=== PATIENT | male | born 1960 | race Caucasian/White ===

== ENCOUNTER → 2020-08-11 08:59 | Outpatient (BNVA) | payer OTHER, SELFPAY | PROVIDERS: Family Provider Family Medicine; PCP Family Medicine; Visit Provider Internal Medicine Cardiovascular Disease | DX: E78.5 Hyperlipidemia, unspecified (principal); I25.10 Atherosclerotic heart disease of native coronary artery without angina pectoris | CPT/HCPCS: 80061; 80076 ==

== ENCOUNTER → 2020-10-14 08:28 | Outpatient (BNVA) | payer OTHER, SELFPAY | PROVIDERS: Family Provider Family Medicine; PCP Family Medicine; Visit Provider Internal Medicine Cardiovascular Disease | DX: E78.5 Hyperlipidemia, unspecified (principal); I10 Essential (primary) hypertension | CPT/HCPCS: 80061; 80076 ==

== ENCOUNTER 2022-08-29 08:07 | Outpatient (CLI) | payer OTHER, SELFPAY ==
[2022-08-29 08:35] VITALS: BMI 42.0
--- NOTE | 2022-08-29 08:38 | ECG_ITS ---
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 Interpretive Statements NAME OF STUDY: EXERCISE SESTAMIBI STRESS TEST INDICATION: [Chest Pain/CAD, ] Electronically Signed On 09-03-2022 15:52:57 [employer] by Jane Chen M.D. [id number]
--- NOTE | 2022-08-29 08:39 | NMCV_ITS ---
NM vivian perf SPECT r/s* [id number] Baron Pandey Age: 62 Gender: M : 1960 Exam Date: 08/29/2022 09:27 Ordering Phys: Antonio Jones MD ([email or web address]) Technologist: ELIZABET Guerrero Exam Location: [facility] Indications: SHORTNESS OF BREATH STRESS TEST Please see separate stress test report in [facility] for full findings IMAGE PROTOCOL Rest/Stress 1 Exercise Day Radiopharmaceutical Dose (mCi) Administration Site Administered by Rest: Tc-99m 10.3 IV ELIZABET Galvin Sestamibi Stress:Tc-99m 32.9 IV ELIZABET Galvin Sestamibi Rest: 29-Aug-2022 60 Discovery 630 Stress: 29-Aug-2022 15 Discovery 630 Radiopharmaceutical was injected at 93 % maximum heart rate. Images obtained in supine and prone position. SPECT RESULTS Technical Quality: Excellent Raw Data Analysis: Normal Image Corrections: Summed Stress Score: 3 Summed Rest Score: 3 Summed Difference Score: 1 PERFUSION FINDINGS Myocardial perfusion imaging revealing small to moderate area of mildly decreased tracer uptake in the basal and mid inferior and apical lateral regions. Some reversibility was noted in the basal inferior region. No significant reversibility was noted in the other segments. FUNCTIONAL RESULTS (calculated via Gated SPECT) Stress Image LV EF (%): 66 Stress EDV (mL):125 TID: 0.95 Stress ESV (mL):42 FUNCTIONAL FINDINGS: LV wall motion analysis revealing no gross wall motion abnormalities. IMPRESSIONS 1. Myocardial perfusion imaging revealing small to moderate area of decreased tracer uptake in the basal and mid inferior and apical lateral region with some reversibility, suggesting myocardial scarring with small area of ischemia in the distribution of the right coronary artery. 2. Normal LV ejection fraction of 66%. 3. LV wall motion analysis revealing no gross wall motion abnormalities. 4. LV volume, upper limit of normal. No similar previous studies are available for comparison Dr Jane Chen MD [facility] (Electronically Signed) Final Date: 30 August 2022 07:47 S
[2022-08-29 11:14] VITALS: BP 158/100; PULSE 87
== END 2022-08-29 08:08 | disposition home or self-care (01) ==
LOC: CDL 08:10
PROVIDERS: PCP Family Medicine; Visit Provider Internal Medicine Cardiovascular Disease
DX: R07.9 Chest pain, unspecified (principal)
CPT/HCPCS: 36415; 78452; 93017; A9500

== ENCOUNTER 2022-09-22 05:51 | Outpatient (CLI) | payer OTHER, SELFPAY ==
[2022-09-22] VITALS (45 sets, daily range): BP systolic 111–149; BP diastolic 65–96; PULSE 54–78; RESP 13–23; TEMP 36.9–37.2; O2SAT 92–97; BMI 42.5; BMI 43.5
--- NOTE | 2022-09-22 06:00 | XACV_ITS ---
Ht: 183 cm Wt: 142 kg BSA: 2.75 m2 Gender: Male : 1960 Any Known Allergies: Other Exam Priority: Routine Indication(s): - Abnormal adenosine perfusion study - Dyspnea with exertion Procedure(s): Procedure Description: Diagnostic procedure Procedure Description: PCI procedure Procedure Description: Left Heart Catheterization Procedure Description: Drug Eluting Coronary Stent Procedure Description: PTCA Procedure Description: Cutting Balloon Procedure Description: Miscellaneous Procedure Description: ACT Procedure Description: Coronary Angiography Diagnostic Cath Status: Elective Diagnostic Findings * INDICATION: Chest pain/ abnormal stress test. * Left Anterior Descending has mild luminal irregularities. * Right Coronary Artery is a small sized vessel and has no signficant disease. * Left Main has no disease. * Mid Circumflex: moderate 50% stenosis, ZOË: 3 flow. * First Obtuse Marginal Branch Segment: obstructive 70% stenosis, ZOË: 3 flow. * Coronary angiography shows left dominance. PCI Status: Elective PCI Indication: Other Interventional Findings * Procedure detail: We engaged left main artery with XB 3.5 guide catheter. IV heparin was administered to maintain anticoagulation. After normalization, IFR wire was advanced into distal OM1 branch. An IFR value of 0.89 was obtained that was ischemic. Given typically chest pain symptoms and abnormal IFR, we proceeded with performing PCI of the vessel. 0.014 run-through guidewire was used. Stenosis was predilated with 2.5 x 12 mm semicompliant balloon. It was calcified. We then used a 3.0 x 10 mm score Flex scoring balloon to predilated. Using a guide liner support, we placed 3.0 x 22 mm resolute [place] drug-eluting stent. At this time patient developed chest pain and had slow/no flow in the vessel. Stent edge dissection was noted. In order to cover that we placed a 2.75 x 15 mm resolute [place] drug-eluting stent. Dissection extended further and it was then covered with 2.5 mm x 12 mm resolute [place] drug-eluting stent. At this time final angiogram was performed that showed excellent stent expansion, no residual stenosis and ZOË 3 flow. Guide wire and guide catheter was removed. 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 . * First Obtuse Marginal Branch Segment: 70% stenosis treated with a AB TREK 2.50X12 RX BALLOON, MDCourt CARABALLO EUPHORA RX 3.68T70RD BALLOON, Scoreflex 3.0 mm x 10 mm, MDT R DANIA 3.0X22 EHSAN, MDT R DANIA 2.75X15 EHSAN, and MDT R DANIA 2.5X12 EHSAN. 0% residual stenosis, ZOË: 3 flow. Conclusions 1. Severe OM1 stenosis confirmed with 2. IFR value of 0.89. S/p successful revascularization with EHSAN x3.. 3. First Obtuse Marginal Branch Segment was treated with a Balloon, Balloon, Balloon, Drug Eluting Stent, Drug Eluting Stent, and Drug Eluting Stent. Recommendations * Continue dual antiplatelet therapy with aspirin. At least 1 year. * High intensity statin therapy. * Patient will need follow-up in 4 weeks. Interventional RX Recommendation: PCI w/o planned CABG Diagnostic RX Recommendation: PCI w/o planned CABG Anticoagulation: Heparin Pressures Phase:Rest AO : 113 / 91 ( 103 ) @ 8:54:00 AM 116 / 96 ( 107 ) @ 8:54:00 AM 127 / 108 ( 118 ) @ 8:58:00 AM 117 / 68 ( 89 ) @ 9:01:00 AM 111 / 67 ( 85 ) @ 9:01:00 AM 90 / 68 ( 79 ) @ 9:12:00 AM 93 / 74 ( 84 ) @ 9:19:00 AM 101 / 79 ( 90 ) @ 9:19:00 AM 89 / 69 ( 79 ) @ 9:26:00 AM 47 / 35 ( 41 ) @ 9:30:00 AM 119 / 81 ( 99 ) @ 9:32:00 AM 102 / 76 ( 89 ) @ 9:36:00 AM LV : 132 / -15 / 5 @ 9:00:00 AM 133 / -12 / 7 @ 9:01:00 AM Valves Phase:DefaultPhase AV : 16.0 @ 9:11:15 AM AV Mean Gradient: 19.0 @ 9:11:15 AM Clinical Evaluation EBL: 5mL-10mL Procedural Details Procedure Consent Obtained. Admit Source: Out Patient. Pre-Procedure Time Out. Identified patient by full name and date of as verbalized by the patient/guarantor. Does the consent match the physician's order: Yes. Accurate & Complete Informed Consent: Yes. Inpatient/Outpatient History & Physical on Chart: Yes. If H&P is completed, is and addenduem needed: No; If yes, is the addendum complete: N/A. Visualize and Verify Site with Patient/Guarantor: N/A. Relevant Radiology Images available: N/A. The risks, benefits, and alternatives of sedation and/or procedure were discussed by physician. The patient agrees to continue. Procedure started. [facility] Clinical Fraility Score: 3: Managing Well. 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 Chest Pain Symptom Assessment: Atypical Angina. Cardiovascular Instability: No- stable. Correct patient, site and procedure confirmed by cath team. Current diagnosis: Chest Pain; Abnormal stress test; Dyspnea on exertion. PERRLA. Strong, equal hand marketing content specialist bilaterally. Lungs clear x 5 lobes. IV Site on Arrival: 20 gauge in the right anticubital. IV Fluids: 0.9% NaCl at KVO. 0 mL infused prior to mineral ore processing labourer. Pre Procedural Pulses: bilateral radial was 1+. Pre Procedural Pulses: bilateral posterior tibial was 2+. Pre Procedural Pulses: bilateral dorsalis pedis was 2+. Oxygen started at 3liters/min via nasal canula. bilateral groins was prepped with chloroprep then draped in the usual sterile fashion. Baseline sample Acquired. HR: 71 BPM. Physician notified. Family updated by MD prior to arrival. Physician arrived. Physician scrubbed in. Immediate Pre-Procedure Time Out. Correct Patient: Yes; Correct Procedure: Yes; Correct Site: Yes; Correct Patient Position: Yes; Correct Supplies: Yes; Dried Flammable Prep: Yes; Blood Products Available: N/A;. Lidocaine 1% infiltrated to the right groin. Arterial access obtained with micropuncture set. A 5 moroccan JL4 catheter in over wire. Unable to cannulate. Catheter removed over the exchange wire. A 5 moroccan JL5 catheter in over wire. Catheter removed over the exchange wire. A 5 moroccan JR4 catheter in over wire. Multiple views taken of right coronary artery. JR4 catheter dropped into lv over the wire. wire removed. EDP Sample taken: LV 132/-16,5; HR: 73 BPM; SpO2: 98%. Pullback taken: LV 133/-13,7; AO 117/68(89); Mean: 19mmHg, Peak to Peak: 16mmHg, SEP: 12sec/min; HR: 75 BPM; SpO2: 97%. Catheter removed over the wire. Inventory is CRD 6 FR XB 3.5 GUIDE. Inventory: six sigma project manager, endoflator. 6 moroccan XB 3.5 guide catheter was inserted over the wire. Guide seated in the LCS. IFR guidewire was advanced through the guide catheter to lesion in the OM. ifr wire normalized proximal to lesion then advanced past. IFR SPOT obtained- 0.89. IFR pullback obtained 0.92. Inflation number : 1 A AB TREK 2.50X12 RX BALLOON was prepped and advanced across the 1st Ob Alexandra , then inflated to 12 ENRIQUE for 0:23 seconds. Results checked. Inflation number: 2 The AB TREK 2.50X12 RX BALLOON was reinflated across the 1st Ob Alexandra, to 12 ENRIQUE for 0:21 seconds. Inflation number: 3 The AB TREK 2.50X12 RX BALLOON was reinflated across the 1st Ob Alexandra, to 12 ENRIQUE for 0:16 seconds. Inflation number: 4 The AB TREK 2.50X12 RX BALLOON was reinflated across the 1st Ob Alexandra, to 12 ENRIQUE for 0:14 seconds. Results checked. Balloon out over the wire. Scoreflex in over the wire. Scoreflex removed. no cross. Inflation number : 5 A MDT NC EUPHORA RX 3.87X95SH BALLOON was prepped and advanced across the 1st Ob Alexandra , then inflated to 12 ENRIQUE for 0:12 seconds. Inflation number: 6 The MDT NC EUPHORA RX 3.43Z95AE BALLOON was reinflated across the 1st Ob Alexandra, to 12 ENRIQUE for 0:08 seconds. Inflation number: 7 The MDT NC EUPHORA RX 3.68W65HD BALLOON was reinflated across the 1st Ob Alexandra, to 12 ENRIQUE for 0:14 seconds. Balloon out over the wire. Inflation number : 8 A Scoreflex 3.0 mm x 10 mm was prepped and advanced across the 1st Ob Alexandra , then inflated to 10 ENRIQUE for 0:22 seconds. Inflation number: 9 The Scoreflex 3.0 mm x 10 mm was reinflated across the 1st Ob Alexandra, to 10 ENRIQUE for 0:15 seconds. Balloon out over the wire. Stent inserted and then removed. No cross. Guidliner inserted. Inflation Number : 10 A MDT R DANIA 3.0X22 EHSAN -Lot Number# [id number] was prepped and advanced across the 1st Ob [place]andra. The stent was deployed at 12 ENRIQUE for 0:18 seconds. EXP: 01/11/25. Stent balloon out over the wire. Guideliner removed. Runthrough guidewire was advanced through the guide catheter to lesion in the OM. Guidewire advanced across lesion. IFR wire removed. Results checked. Stent inserted. Unable to cross. Removed intact. Guideliner inserted. Inflation Number : 11 A MDT R DANIA 2.75X15 EHSAN -Lot [id number] EXP 09-28-24 was prepped and advanced across the 1st Ob Alexandra. The stent was deployed at 12 ENRIQUE for 0:15 seconds. Results checked. Guideliner out. AP pads applied. Stent balloon out over wire. Stent inserted. Unable to cross. Removed intact. Stent inserted. Unable to cross. Removed intact. Guideliner inserted. Inflation Number : 12 A MDT R DANIA 2.5X12 EHSAN -Lot Number# [id number] was prepped and advanced across the 1st Ob Alexandra. The stent was deployed at 12 ENRIQUE for 0:16 seconds. EXP 06/01/2024. Results checked. Stent balloon out over the wire. Guideliner out. Results checked. Wire out. Results checked. Blood drawn for PTT. Sent to main lab. Guide catheter out over the wire. Physician review of films. Physician scrubbed out. A Suture was successful obtaining hemostatsis at the Right Femoral artery insertion site. Vital chart was stopped. Sheath(s) sutured into position with 2-0 silk and sterile 4x4's and Op-site applied over the site. No oozing or signs and symptoms of hematoma noted. Arterial sheath flushed and connected to tranducer and pressure bag with heparinized saline. Post Procedure: Pulses reassessed and unchanged. PERRLA. Strong, equal hand marketing content specialist bilaterally. No VTE prophylaxis required. Medication waste: Nitro- 49.8 mg Heparin- 1000 units. Fentanyl- 25 mcg. Total IV fluids: 250 mL. Fluoro: 21:00. Contrast type used: Omnipaque 300 mgI/mL, 500 mL bottle. [id number]. Post-op diagnosis: Severe OM1 stenosis; Status post revascularization with 3 stents. Complications: None. Estimated blood loss: 5mL-10mL. Responsiveness - Normal response to verbal stimuli; alert and oriented, PERRLA. Airway - Unaffected, no intervention required; spontaneous ventilation. Circulation: W/N/L, pulses unchanged. Nausea/Vomiting: No. Procedure completed. Patient transferred by bed to CPRU. Current Diagnosis : Chest Pain. Access Site Site: Right Femoral artery Sheath Size: 6 Fr Hemostasis Method: Suture Hemostasis Success: Successful Procedure Medications Start: 7:45 AM Stop: 7:45 AM Medication: Versed Amount: 1 mg Route: I.V. Start: 7:45 AM Stop: 7:45 AM Medication: Fentanyl Amount: 50 mcg Route: I.V. Start: 7:48 AM Stop: 7:48 AM Medication: Versed Amount: 1 mg Route: I.V. Start: 8:01 AM Stop: 8:01 AM Medication: Heparin Amount: 10143 units Route: I.V. Start: 8:02 AM Stop: 8:02 AM Medication: Versed 1 mg and Fentanyl 25 mcg Amount: 1 Route: I.V. Start: 8:11 AM Stop: 8:11 AM Medication: Heparin Amount: 3000 units Route: I.V. Start: 8:18 AM Stop: 8:18 AM Medication: Heparin Amount: 1000 units Route: I.V. Start: 8:27 AM Stop: 8:27 AM Medication: Heparin Amount: 1000 units Route: I.V. Start: 8:31 AM Stop: 8:31 AM Medication: 0.9% Saline Amount: 250 ml Route: I.V. bolus Start: 8:33 AM Stop: 8:33 AM Medication: Versed Amount: 1 mg Route: I.V. Start: 8:15 AM Stop: 8:15 AM Medication: Versed Amount: 1 mg Route: I.V. Start: 8:42 AM Stop: 8:42 AM Medication: Heparin Amount: 1000 units Route: I.V. Start: 8:46 AM Stop: 8:46 AM Medication: Versed Amount: 1 mg Route: I.V. Start: 8:50 AM Stop: 8:50 AM Medication: Nitrogylcerin Amount: 100 mcg Route: I.C. I, the attending physician, have reviewed and verified all procedure medications. Yes, all medications given per verbal order History/Risk Factors Hypertension: Yes Dyslipidemia: Yes Peripheral Arterial Disease (PAD): No Myocardial Infarction (DE): Yes Obesity: Yes Renal Disease: No Tobacco Use: Former Prior Interventions PCI: Yes CABG: No Valve Surgery: No Report Signatures Finalized by Ángel Mcintyre MD on 10/02/2022 07:15 AM
[2022-09-22] MEDS: diphenhydrAMINE 50 mg Capsule PO (06:30)
[2022-09-22 06:36] LABS: Basophils # 0.1 10^3/uL (0.0-0.1); Basophils % 0.5 %; Eosinophils # 0.3 10^3/uL (0.0-0.8); Eosinophils % 2.8 %; Hematocrit 49.3 % (42.0-52.0); Hemoglobin 17.1 g/dL (11.7-16.6); Lymphocytes # 2.4 10^3/uL (0.8-4.8); Lymphocytes % 25.3 %; Mean Corpuscular HGB Conc 34.7 g/dL (30.0-36.0); Mean Corpuscular Volume 77.9 fl (80-94); Mean Platelet Volume 9.8 fL (7.4-10.4); Monocytes # 0.6 10^3/uL (0.2-0.9); Monocytes % 5.9 %; Neutrophils # 6.06 10^3/uL (1.8-7.7); Neutrophils % 65.2 %; Nucleated Red Blood Cells % 0 %; Platelet Count 258 10^3/cmm (130-400); Red Blood Count 6.33 10^6/uL (4.1-5.3); Red Cell Distribution Width 12.8 % (12.1-15.1); White Blood Count 9.3 10^3/uL (4.0-10.0)
[2022-09-22 06:43] LABS: Blood Urea Nitrogen 15 mg/dL (8-23); Calcium 9.4 mg/dL (8.5-10.5); Carbon Dioxide 26 mmol/L (22-29); Chloride 102 mmol/L (98-107); Glomerular Filtration Rate 85.8 mL/min (90-130); Glucose 147 mg/dL (65-115); Osmolality Calculated 292 mOsm/kg (285-295); Sodium 139 mmol/L (136-145)
--- NOTE | 2022-09-22 07:44 | W.PM.OPSUD ---
Surgery/Procedure H&P Update DATE OF PROCEDURE: September 22, 2022 DATE H&P PERFORMED: 09/08/22 H&P UPDATE INFORMATION: I have reviewed H&P completed within last 30 days, I have examined patient prior to procedure and No changes to prior documentation PREOP DIAGNOSIS: Chest pain/ abnormal stress test PRIMARY INDICATION FOR PROCEDURE: Chest pain/ abnormal stress test PLANNED PROCEDURE: Operation Date: 09/22/22 07:00 Proposed Procedures p [facility] w/-w/o 81292 ,R07.9(Left) - Ángel Mcintyre M.D Possible percutaneous coronary intervention PATIENT REASSESSED PRIOR TO SEDATION, WITH NO CHANGE NOTED: Yes PHYSICAL EXAM: alert, oriented x 3, clear to auscultation bilaterally and regular rate & rhythm AIRWAY EVAL/ANESTHESIA PLAN: normal airway, ASA III, Local Anesthesia, Risks, benefits & alternatives of sedation and/or procedure discussed and Patient agrees to continue as planned ADDITIONAL INFORMATION: Moderate sedation
--- NOTE | 2022-09-22 09:18 | PC.NURSE ---
Received pt from lab intern post stent placement. Pt complains of no pain at this time. Pt wakes to verbal command. Sheath attached to pressure bag in right groin. No bruising or hematoma noted. Pt attached to vitals and will be monitored per protocol. PTT drawn and send to lab.
[2022-09-22 10:03] LABS: Partial Thromboplastin Time > 250.0 SECONDS (23.9-36.7)
--- NOTE | 2022-09-22 10:03 | PC.NURSE ---
critical PTT called from lab. greater 250. dr wallace orders repeat ptt in 2 hours.
[2022-09-22 12:12] LABS: Partial Thromboplastin Time 143.4 SECONDS (23.9-36.7)
--- NOTE | 2022-09-22 12:56 | PC.NURSE ---
received from cardiac chemical laboratory technician via bed,into room 111-1, at 1245.report received.pt is alert and oriented x 4.sr on monitor.denies pain at present.right femoral arterial sheath is intact to pressurized system.right groin dsg is dry and intact.no hematoma noted.right leg is warm to touch and with brisk capillary refill.palpable dp pulse noted.pt and family instructed in activity restrcitions s/p femoral artery procedure...and instructed to notify staff for any bleeding,pain,numbness,sob,or for any concerns at all.they verb understanding of instructions.
[2022-09-22 13:59] LABS: Partial Thromboplastin Time 39.5 SECONDS (23.9-36.7)
--- NOTE | 2022-09-22 15:14 | PC.NURSE ---
sheath pull: right femoral arterial sheath pulled at 1430.manual pressure held x 20 min.vss through-out procedure.no hematoma formation noted.right leg remained warm to touch and with brisk capillary refill.palpable dp pulse noted.pt and cg instructed in activity restrictions s/p sheath pull...and instructed to notify staff for any bleeding,pain,sob,numbness...or for any concerns at all.pt verb understanding of instructions
[2022-09-23 01:05] VITALS: BP 116/69; PULSE 66; RESP 19; TEMP 36.6; O2SAT 95
[2022-09-23 03:56] VITALS: PULSE 74; O2SAT 95
[2022-09-23 04:00] VITALS: BP 128/78; PULSE 74; RESP 21; TEMP 36.5; O2SAT 98
[2022-09-23 05:36] VITALS: PULSE 60
[2022-09-23 05:36] LABS: Basophils # 0.1 10^3/uL (0.0-0.1); Basophils % 0.7 %; Eosinophils # 0.3 10^3/uL (0.0-0.8); Eosinophils % 3.3 %; Hematocrit 45.5 % (42.0-52.0); Hemoglobin 15.7 g/dL (11.7-16.6); Lymphocytes # 2.4 10^3/uL (0.8-4.8); Lymphocytes % 24.7 %; Mean Corpuscular HGB Conc 34.5 g/dL (30.0-36.0); Mean Corpuscular Hemoglobin 27.4 pg (28.0-34.0); Mean Corpuscular Volume 79.4 fl (80-94); Mean Platelet Volume 10.3 fL (7.4-10.4); Monocytes # 0.7 10^3/uL (0.2-0.9); Monocytes % 6.7 %; Neutrophils # 6.22 10^3/uL (1.8-7.7); Neutrophils % 64.2 %; Nucleated Red Blood Cells % 0 %; Platelet Count 222 10^3/cmm (130-400); Red Blood Count 5.73 10^6/uL (4.1-5.3); Red Cell Distribution Width 13.1 % (12.1-15.1); White Blood Count 9.7 10^3/uL (4.0-10.0)
[2022-09-23 05:44] LABS: Anion Gap 14.9 (5-19); Blood Urea Nitrogen 13 mg/dL (8-23); Carbon Dioxide 24 mmol/L (22-29); Chloride 102 mmol/L (98-107); Glomerular Filtration Rate 85.8 mL/min (90-130); Glucose 145 mg/dL (65-115); Osmolality Calculated 287 mOsm/kg (285-295); Potassium 3.9 mmol/L (3.5-5.1); Sodium 137 mmol/L (136-145)
[2022-09-23 08:34] VITALS: BP 123/70
[2022-09-23] MEDS: losartan 50 mg Tablet PO (08:34)
[2022-09-23] MEDS: aspirin 81 mg EC Tablet PO (08:34)
[2022-09-23] MEDS: clopidogrel 75 mg Tablet PO (08:34)
[2022-09-23] MEDS: chlorthalidone 25 mg Tablet PO (08:34)
[2022-09-23 10:03] VITALS: BP 131/78; PULSE 74; RESP 18; O2SAT 97
--- NOTE | 2022-10-02 07:01 | PM.DCS ---
Discharge Providers Date of Admission: 09/22/2022 Date of Discharge: 09/23/2022 Attending Provider at Admission: Ángel Mcintyre MD Attending Provider at Discharge: Ángel Mcintyre MD Primary Care Provider: Mahamed Monsivais Reason for Visit Reason for Visit: Left heart cath with possible PCI Brief History: 62-year-old man with past medical history of CAD had been having worsening chest pain symptoms that feels like pressure. He recently had a stress test that was abnormal. Plan for coronary angiogram with possible PCI. Hospital Course Hospital Course Coronary angiogram revealed moderate to severe, eccentric OM1 stenosis. iFR confirmed ischemia. We then performed PCI with 1 stent. He had distal edge dissection of the vessel from the stent. 2 additional stents were placed to cover that. He had excellent flow and stent expansion at the end. He was observed overnight in the hospital and stayed stable. He is discharged in a stable condition. Physical Exam Narrative: GENERAL: Patient is alert, awake and oriented x3. [] NECK: No jugular vein distension. [] HEENT: No cyanosis. No icterus. No pallor. [] HEART: Regular S1 and S2. No murmur, rub or gallop. [] LUNGS: Clear to auscultate bilaterally. [] CENTRAL NERVOUS SYSTEM: Grossly nonfocal. [] EXTREMITIES: Lower extremities with 1+ edema bilaterally. Pulses palpable in the lower extremities, both dorsalis pedis and posterior tibial. [] Discharge Data Studies Completed and Pending Pending at discharge Category Date Time Status HEAD OF ETHICS AND COMPLIANCE request for service Routine Exams 09/22/22 06:00 Taken Laboratory Results WBC 9.7 10^3/uL (4.0-10.0) 09/23/22 04:27 RBC 5.73 10^6/uL (4.1-5.3) H 09/23/22 04:27 Hgb 15.7 g/dL (11.7-16.6) 09/23/22 04:27 Hct 45.5 % (42.0-52.0) 09/23/22 04:27 MCV 79.4 fl (80-94) L 09/23/22 04:27 MCH 27.4 pg (28.0-34.0) L 09/23/22 04:27 MCHC 34.5 g/dL (30.0-36.0) 09/23/22 04:27 RDW 13.1 % (12.1-15.1) 09/23/22 04:27 Plt Count 222 10^3/cmm (130-400) 09/23/22 04:27 MPV 10.3 fL (7.4-10.4) 09/23/22 04:27 Neut % (Auto) 64.2 % 09/23/22 04:27 Lymph % (Auto) 24.7 % 09/23/22 04:27 [place] % (Auto) 6.7 % 09/23/22 04:27 Eos % (Auto) 3.3 % 09/23/22 04:27 Baso % (Auto) 0.7 % 09/23/22 04:27 Neut # (Auto) 6.22 10^3/uL (1.8-7.7) 09/23/22 04:27 Lymph # (Auto) 2.4 10^3/uL (0.8-4.8) 09/23/22 04:27 [place] # (Auto) 0.7 10^3/uL (0.2-0.9) 09/23/22 04:27 Eos # (Auto) 0.3 10^3/uL (0.0-0.8) 09/23/22 04:27 Baso # (Auto) 0.1 10^3/uL (0.0-0.1) 09/23/22 04:27 Nucleated RBC % (auto) 0 % 09/23/22 04:27 Nucleated RBCs # 0.0 /100WBC 09/23/22 04:27 APTT 39.5 SECONDS (23.9-36.7) H D 09/22/22 13:33 Sodium 137 mmol/L (136-145) 09/23/22 04:27 Potassium 3.9 mmol/L (3.5-5.1) 09/23/22 04:27 Chloride 102 mmol/L (98-107) 09/23/22 04:27 Carbon Dioxide 24 mmol/L (22-29) 09/23/22 04:27 Anion Gap 14.9 (5-19) 09/23/22 04:27 BUN 13 mg/dL (8-23) 09/23/22 04:27 Creatinine 0.9 mg/dL (0.7-1.2) 09/23/22 04:27 GFR Calculation 85.8 mL/min (90-130) L 09/23/22 04:27 Glucose 145 mg/dL (65-115) H 09/23/22 04:27 Calculated Osmolality 287 mOsm/kg (285-295) 09/23/22 04:27 Calcium 9.0 mg/dL (8.5-10.5) 09/23/22 04:27 Vitals Last Vital Signs Temp 97.7 F 09/23/22 04:00 Pulse 74 09/23/22 10:03 Resp 18 09/23/22 10:03 BP 131/78 09/23/22 10:03 Pulse Ox 97 09/23/22 10:03 O2 Del Method 09/23/22 10:03 Discharge Plan Discharge Patient Disposition: Home Prescriptions: Continued indomethacin 25 mg capsule 25 mg PO DAILY PRN (Reason: pain) chlorthalidone 25 mg tablet 25 mg PO DAILY Qty: 30 4RF valsartan 160 mg tablet 160 mg PO DAILY Qty: 90 3RF clonidine HCl 0.1 mg tablet 0.1 mg PO DAILY PRN (Reason: hypertensive emergency) Qty: 30 1RF aspirin [Adult Low Dose Aspirin] 81 mg tablet,delayed release (DR/EC) 81 mg PO QDAY Qty: 90 3RF nitroglycerin [Nitrostat] 0.4 mg tablet, sublingual 0.4 mg SUBLINGUAL Q5M PRN (Reason: chest pain) Qty: 25 3RF clopidogrel 75 mg tablet 75 mg PO QDAY Qty: 90 3RF Discharge Orders: Discharge Order (Routine); Ordered 09/23/22 Ordered By: Ángel Mcintyre Referrals: Mahamed Monsivais [Primary Care Provider] - 09/30/22 10:30 am Nori Ford FNP [Nurse Practitioner] - 09/28/22 11:15 am Diet: Cardiac Activity: Increase activity as tolerated Patient Instructions: Coronary Angioplasty (DC) Discharge Date/Time: 09/23/22 10:40 Discharge Attestations Time Spent in Discharge Care*: less than 30 min Quality Metrics Clinical Quality Measures [ No reported AMI, CVA or VTE this stay] Coding Level of Care Code Acute Code for Chg Lynn
== END 2022-09-23 10:40 | disposition home or self-care (01) ==
LOC: CCL 05:57 → CSU 12:34 → CCL 12:38 → CSU 20:16
PROVIDERS: Internal Medicine; PCP Family Medicine; Visit Provider Internal Medicine Cardiovascular Disease
DX: I25.10 Atherosclerotic heart disease of native coronary artery without angina pectoris (principal); I25.82 Chronic total occlusion of coronary artery; I10 Essential (primary) hypertension; E78.5 Hyperlipidemia, unspecified; E66.9 Obesity, unspecified; Z68.41 Body mass index [BMI] 40.0-44.9, adult; I25.2 Old myocardial infarction; Z87.891 Personal history of nicotine dependence
CPT/HCPCS: 36415; 80048; 85025; 85730; 93458; 93571; 96361; 96365; 99152; 99153; C1725; C1769; C1874; C1887; C1894; C9600; J1644; J2250; J3010; J3490; J7030; Q0163; Q9967

== ENCOUNTER → 2024-10-15 10:29 | Outpatient (BNVA) | payer OTHER, SELFPAY | PROVIDERS: PCP Family Medicine; Visit Provider Internal Medicine Cardiovascular Disease | DX: R07.9 Chest pain, unspecified (principal) | CPT/HCPCS: 93005 ==

== ENCOUNTER 2024-10-22 15:27 | Outpatient (CLI) | payer OTHER, SELFPAY ==
[2024-10-22 17:28] LABS: NT Pro B Type Natriuretic Pept < 36 pg/mL (0-125)
== END 2024-10-22 15:28 | disposition home or self-care (01) ==
LOC: LAB 15:28
PROVIDERS: PCP Family Medicine; Visit Provider Nurse Practitioner Family
DX: R06.02 Shortness of breath (principal)
CPT/HCPCS: 36415; 83880

== ENCOUNTER 2024-11-01 06:46 | Outpatient (CLI) | payer OTHER, SELFPAY ==
--- NOTE | 2024-11-01 14:15 | USCV_ITS ---
Baron Pandey Age: 64 Gender: M : 1960 Exam Date: 11/01/2024 06:54 Ordering Phys: Yina Sprague NP Technologist: ALENA [place]am [place] [facility] [place]: Preop clearance BP: 140 / 93 HR: 74 Rhythm: Sinus Technical Quality: Adequate MEASUREMENTS (Male / Female) Normal Values 2D ECHO LV Diastolic Diameter PLAX 4.5 cm 4.2 - 5.9 / 3.9 - 5.3 cm IVS Diastolic Thickness 1.1 cm 0.6 - 1.0 / 0.6 - 0.9 cm IVS Systolic Thickness 1.5 cm LVPW Diastolic Thickness 0.9 cm 0.6 - 1.0 / 0.6 - 0.9 cm LVPW Systolic Thickness 1.7 cm LVOT Diameter 1.9 cm LV Ejection Fraction 2D Teich 60.8 % LV Ejection Fraction MOD 4C 63.2 % LV Ejection Fraction MOD 2C 42.6 % LV Ejection Fraction 2C AL 77.0 % LA Diameter 3.3 cm RA Systolic Volume 4C AL 17.2 ml RA Systolic Volume 4C MOD 16.9 ml Aorta at Sinotubular Diameter 2.9 cm M-MODE LA Ao Ratio MM 1.6 AV Cusp Separation MM 1.2 cm DOPPLER AV Peak Velocity 188.7 cm/s LVOT Peak Velocity 108.0 cm/s AV Area Cont Eq vti 2.1 cm squared AV Area Cont Eq pk 1.7 cm squared MV Peak Velocity 92.0 cm/s MV Area PHT 3.4 cm squared Mitral E to A Ratio 0.8 TR Peak Velocity 117.0 cm/s TR Peak Gradient 5.5 mmHg TV Peak E Velocity 63.0 cm/s PV Peak Velocity 91.0 cm/s FINDINGS Left Ventricle Left ventricle is normal in size. LV systolic function is normal with EF of 55-60%. No regional wall motion abnormalities. Grade 1 diastolic dysfunction Right Ventricle Normal in size and function Right Atrium Normal in size Left Atrium Normal in size Mitral Valve Grossly normal mitral valve. Mild mitral regurgitation. Aortic Valve Grossly normal. No significant stenosis or regurgitation. Tricuspid Valve Insufficient TR jet to calculate RVSP Pulmonic Valve Not well visualized Pericardium Normal Aorta Normal in size IVC Not well visualized CONCLUSIONS LV systolic function is normal with EF of 55-60% Grade 1 diastolic dysfunction Mild mitral regurgitation Ángel Mcintyre MD (Electronically Signed) Final Date: 07 Nov 2024 09:47 S
== END 2024-11-01 06:47 | disposition home or self-care (01) ==
PROVIDERS: PCP Family Medicine; Visit Provider Nurse Practitioner Family
DX: I21.9 Acute myocardial infarction, unspecified (principal); R93.1 Abnormal findings on diagnostic imaging of heart and coronary circulation; I34.0 Nonrheumatic mitral (valve) insufficiency
CPT/HCPCS: 93306